=== PATIENT | female | born 1960 | race Caucasian/White ===

== ENCOUNTER 2022-09-09 12:38 | Emergency (ER) | payer BC, SELFPAY ==
[2022-09-09 12:44] VITALS: BP 131/72; PULSE 56; RESP 18; TEMP 36.8; O2SAT 100
--- NOTE | 2022-09-09 12:56 | ED.GENADUL_ITS ---
Discharge Plan Disposition Patient Disposition: Home Condition: Stable Discharge Details Clinical Impression: Transient visual loss of left eye, Hematuria ED Provider: Cristel Steinberg Home Meds and New Rx's Prescriptions: No Action No Known Home Meds Discharge Instructions Instructions: Hematuria (ED) Additional Instructions: As we discussed, your labs and imaging are reassuring. Not seeing you during the event, it is hard to say definitively what occurred. It is reassuring that an manager field service evaluated you and is not seeing any acute abnormalities. Again, imaging is reassuring. Please follow-up with primary care esthesia,. Please take 81 mg of aspirin daily. If you develop headache, vision change, fevers, headache, weakness, speech changes or other new/worsening symptoms please seek care urgently once again. Discharge Data Discharge Date/Time-TO BE ENTERED AT DEPARTURE: 09/09/22 17:04 Medical Decision Making Patient is a pleasant 62 year old female, accompanied by her , no past medical history and not on any medication, presenting with c/c of brief vision loss to left eye yesterday which has since resolved. States that around 1030 last night she was sitting with her eyes closed chatting with her partner when she opened her eyes and noted a change. From. To close each eye individually and she states that no light could come in through my left eye. She states this lasted about a minute and then resolve. Denies any eye pain. Has not had issues like this historically. No fevers or chills. Denies any headache. No temporal pain. No jaw claudication. Wears glasses normally. Was already assessed today by ophthalmology who dilated her pupils, did a retinal exam, visual acuity and could not find any acute abnormality or evidence of clot on their exam. They did advise coming here to evaluate for potential TIA. She reports that her vision is completely normal at this time Aside from some photophobia associated with her pupil dilation. She has no history of stroke. Father had a stroke in his 90s. Non-smoker, no alcohol intake, otherwise fairly healthy but does not receive routine follow-up with primary care. Visiting from [place]. On exam, patient appears nontoxic. She is hemodynamically stable. She is resting comfortably, Intact neuro exam. Her pupils are dilated but otherwise I do not note any abnormality. 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 She was seen by [facility] for exam, no abnormalities, but pupils remain dilated. She has no weakness, good balance, no other CN deficits. She does have hx of glaucoma but pressures were not high today. Without pain or continued issue, I find this unlikely to be cause. No previous issues with this, no hx of CVA. Dad had CVA in his 90s but no evidence currently. Complete unilateral suggests optic neuritis but lack of persistent symptoms makes this less likely. Will obtain CTA, labs. She is very active without symptoms during these times, I do not see evidence of ACS. No findings of DVT. CT Head W/O and W contrast: Ventricles and Extra axial spaces: Normal in size and morphology for the patient's age. Hemorrhage: None. Cerebral parenchyma: Normal. Midline shift: None. Brainstem/Cerebellum: Normal. Calvarium: Normal. Visualized Paranasal sinuses/Mastoids: Clear. Soft Tissues: Unremarkable. Enhancement: Normal. CTA Brain W: Internal Carotid Arteries: Petrous: Normal. Cavernous: Normal. Cerebral: Normal. Middle Cerebral Arteries: Right:? No aneurysm, occlusion or significant stenosis. Left:? No aneurysm, occlusion or significant stenosis. Anterior Cerebral Arteries: Right:? No aneurysm, occlusion or significant stenosis. Left:? No aneurysm, occlusion or significant stenosis. Posterior cerebral Arteries: Right:? No aneurysm, occlusion or significant stenosis. Left:? No aneurysm, occlusion or significant stenosis. Vertebral Arteries: Right:? No aneurysm, occlusion or significant stenosis. Left:? No aneurysm, occlusion or significant stenosis. Basilar Artery:? No aneurysm, occlusion or significant stenosis. CTA Neck W: Common Carotid: Right:? No dissection, occlusion or significant stenosis. Left:? No dissection, occlusion or significant stenosis. External Carotid: Right:? No dissection, occlusion or significant stenosis. Left:? No dissection, occlusion or significant stenosis. Internal Carotid: Right:? No dissection, occlusion or significant stenosis. Left:? No dissection, occlusion or significant stenosis. Vertebral Artery: Right:? No dissection, occlusion or significant stenosis. Left:? No dissection, occlusion or significant stenosis. Lung Apices: Normal. Bones: No acute abnormality.? 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 Mild degenerative disc changes at C5-6.? Soft Tissues: Normal. IMPRESSION: 1. Normal CTA examination of the [place]. 2. Unremarkable CT Head. 3. Normal CTA examination of the neck.? Discussed at length with patient and her and friend. At this time, no acute pathology noted. She had thorough eval with [facility]. Unclear if this may have been temporary occlusive disease of the optic artery or vein. The galindo lost are not consistent with TIA of the occipital lobe. Will send with [facility]. Discussed starting a pension administrator but given where she is from, she will complete this at home. Discussed admission for observation vs. outpatient workup and she would like to be home, has good supportive care. Jamison has been asymptomatic thorughout the rest of the evening yesterday as well as during her evaluation here today. Advised she begin baby ASA. Strict return precautions given. All of her questions and concerns were addressed, she is in agreement with this plan. HPI General Date/Time Provider Initiated Documentation: 09/09/22 12:54 . Limitations to Documentation: no limitations . Information obtained by: patient, family () and RN notes reviewed . History of Present Illness 62 year old F presents to the emergency department with the chief complaint of complete. loss of vision in left eye, now resolved, described as severe, with intensity rated at 1 (denies any pain during the incident). and is localized to the eyes. Patient reports no radiation. Patient started experiencing this day(s) and it has been now resolved (lasted less than 1 min). No relieving factors improve symptom(s), No exacerbating factors reported (had eyes closed prior to event) . Patient notes no other symptoms.. Patient did receive the following treatments prior to arrival, none Related Data Home Medications Medication Instructions Recorded Confirmed Unknown [No Known Home Meds] 09/09/22 09/09/22 Allergies Allergy/AdvReac Type Severity Reaction Status Date / Time No Known Allergies Allergy Unverified 09/09/22 13:00 General Stated Complaint: EyeProblem CANDIDA: 3 Review of Systems Constitutional Constitutional: Reports as per HPI, Denies chills, Denies fever(s), Denies frequent falls and Denies weakness Eyes Eyes: Reports as per HPI ENT Ears, Nose, Mouth, and Throat: Denies vertigo and Denies neck pain Cardiovascular Cardiovascular: Reports as per HPI, Denies chest pain, Denies lightheadedness, Denies radiating jaw, neck or arm pain, Denies dyspnea and Denies dyspnea on exertion Respiratory Respiratory: Reports as per HPI, Denies chest congestion, Denies cough, Denies dyspnea and Denies dyspnea on exertion Gastrointestinal Gastrointestinal: Reports as per HPI, Denies abdominal pain, Denies change in bowel habits, Denies nausea and Denies vomiting Musculoskeletal Musculoskeletal: Reports as per HPI, Denies back pain, Denies neck pain and Denies numbness Integumentary/Breasts Skin/Breast: Reports as per HPI and Denies rash Neurologic Neurologic: Reports as per HPI, Denies abnormal speech, Denies vertigo, Denies frequent falls, Denies localized weakness, Denies numbness, Denies sensory deficit and Denies weakness PFSH All Active Problems (Updated 09/09/22 @ 16:23 by DEVANTE Horner) Transient visual loss of left eye (Acute) Hematuria (Acute) Social History Smoking risk assessment performed?: No Drug use: Never Substance use type: does not use Housing: house Do you feel safe at home: Yes Do you feel safe in your relationship?: Yes Exam Const General: cooperative, healthy appearing, uncomfortable, no acute distress, well developed and well groomed Nutritional Appearance: average body habitus and well nourished Orientation: alert, awake and oriented x3 HENMT Head: normal to inspection, no palpable skull fracture, normocephalic and atraumatic Ears: hearing grossly normal bilaterally, external ears normal and TM's normal bilaterally General nose exam: external nose normal Mouth: oral mucosae normal and moist mucous membranes Throat: posterior oropharynx normal Eyes General: appearance normal, both eyes and all related structures (pupils dilated, no reflex) Alignment and Position: alignment normal Periorbital: periorbital findings normal Eyelids: eyelids normal Sclera: sclerae normal Cornea: corneas normal EOM: EOM intact bilaterally Neck Neck: normal visual inspection, full ROM, no lymphadenopathy and no meningeal signs Resp Effort & Inspection: normal respiratory effort, able to speak in complete sentences and no respiratory distress Auscultation: clear to auscultation bilaterally, no rales, no rhonchi and no wheezes Cardio Rate: regular rate Rhythm: regular rhythm Heart Sounds: S1 normal and S2 normal Back/Spine/Pelvis Cervical Spine: normal cervical lordosis and cervical ROM normal Skin General skin exam: no rashes or lesions noted Neuro General: patient alert, patient awake and patient oriented x3 Cranial Nerves: CN's II-XI intact bilaterally (had eyes dilated limiting exam) Cognition: normal cognition Speech: speech normal Gait: normal gait Motor: muscle tone normal throughout, strength 5/5 throughout, no pronator drift, no movement abnormalities noted and no fasciculations Sensory Exam: no sensory deficits noted Coordination: [id number] test normal and [id number] test normal Extrem General: normal to inspection, capillary refill normal, no pedal edema and no calf tenderness Course Vital Signs Vital signs: Vital Signs Temperature 36.8 C 09/09/22 12:44 Pulse 56 L 09/09/22 12:44 Respiratory Rate 18 09/09/22 12:44 Blood Pressure 131/72 09/09/22 12:44 Pulse Oximetry 100 09/09/22 12:44 Temperature 36.8 C 09/09/22 12:44 Temperature Source Oral 09/09/22 12:44 Pulse 56 L 09/09/22 12:44 Respiratory Rate 18 09/09/22 12:44 Respiratory Effort Normal, Non-Labored 09/09/22 12:47 Blood Pressure 131/72 09/09/22 12:44 Blood Pressure Position Sitting 09/09/22 12:44 Pulse Oximetry 100 09/09/22 12:44 Oxygen Delivery Method Room Air 09/09/22 12:44 Oxygen Flow Rate 0 09/09/22 12:44
--- NOTE | 2022-09-09 13:00 | RT.EKG_ITS ---
APPROVED REPORT Exam: Resting ECG Reason for Exam: vision loss, question TIA Patient Location: E HR:53 bpm ECG Measurements Heart Rate 53 AXIS SD 170 P 65 QRSd 96 QRS 53 QT 414 T 48 QTc 387 Conclusion Sinus bradycardia...rate< 60 Physician: no stemi
--- NOTE | 2022-09-09 13:00 | DI.CT_ITS ---
Exam(s) CT BRAIN NECK CTA EXAM: CT BRAIN NECK CTA CLINICAL HISTORY: left sided vision loss yesteday, now resolved. TECHNIQUE: Imaging Protocol: Axial CT angiography was performed with multi-slice acquisition and mu lti-planar and 3D reconstructions. CONTRAST MATERIAL: Intravenous: Omnipaque 350 Contrast volume:structured data in ml COMPARISON: No exams were available for comparison FINDINGS: CT Head W/O and W contrast: Ventricles and Extra axial spaces: Normal in size and morphology for the patient's age. Hemorrhage: None. Cerebral parenchyma: Normal. Midline shift: None. Brainstem/Cerebellum: Normal. Calvarium: Normal. Visualized Paranasal sinuses/Mastoids: Clear. Soft Tissues: Unremarkable. Enhancement: Normal. CTA Brain W: Internal Carotid Arteries: Petrous: Normal. Cavernous: Normal. Cerebral: Normal. Middle Cerebral Arteries: Right: No aneurysm, occlusion or significant stenosis. Left: No aneurysm, occlusion or significant stenosis. Anterior Cerebral Arteries: Right: No aneurysm, occlusion or significant stenosis. Left: No aneurysm, occlusion or significant stenosis. Posterior cerebral Arteries: Right: No aneurysm, occlusion or significant stenosis. Left: No aneurysm, occlusion or significant stenosis. Vertebral Arteries: Right: No aneurysm, occlusion or significant stenosis. Left: No aneurysm, occlusion or significant stenosis. Basilar Artery: No aneurysm, occlusion or significant stenosis. CTA Neck W: Common Carotid: Right: No dissection, occlusion or significant stenosis. Left: No dissection, occlusion or significant stenosis. External Carotid: Right: No dissection, occlusion or significant stenosis. Left: No dissection, occlusion or significant stenosis. Internal Carotid: Right: No dissection, occlusion or significant stenosis. Left: No dissection, occlusion or significant stenosis. Vertebral Artery: Right: No dissection, occlusion or significant stenosis. Left: No dissection, occlusion or significant stenosis. Lung Apices: Normal. Bones: No acute abnormality. 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 Mild degenerative disc changes a t C5-6. Soft Tissues: Normal. IMPRESSION: 1. Normal CTA examination of the [place]. 2. Unremarkable CT Head. 3. Normal CTA examination of the neck. RADIATION DOSE DELIVERED: 2,017mGy.cm Total DLP DATA REPOSITORY: All CT scans at this facility are submitted to the National Radiology Data Registry (NRDR) Dose Index Registry (DIR) with the [employer] ([employer]). RADIATION OPTIMIZATION: All CT scans at this facility use at least one of these dose optimization te chniques: automated exposure control; mA and/or kV adjustment per patient size (includes targeted exa ms where dose is matched to clinical indication); or iterative reconstruction.
--- NOTE | 2022-09-09 13:26 | DI.RAD_ITS ---
Exam(s) XR CHEST 2V PA LATERAL EXAM: XR CHEST 2V PA LATERAL CLINICAL HISTORY: vision loss yesterday, now resolved TECHNIQUE: 2D digital imaging was performed. COMPARISON: No exams were available for comparison FINDINGS: HEART: Normal size. Aorta: Not dilated. PULMONARY VASCULATURE: Normal. LUNGS: Clear. PLEURAL SPACE: No pleural effusion or pneumothorax. BONE:Unremarkable for age. IMPRESSION: No acute abnormality. DATA REPOSITORY: RADIATION DOSE DELIVERED:
[2022-09-09 13:49] LABS: Bilirubin Negative (Negative); Blood Small (Negative); Clarity Clear (Clear); Glucose Negative (Negative); Ketones Negative (Negative); Leukocyte Esterase Negative (Negative); Nitrite Negative (Negative); Specific Gravity <= 1.005 (1.005-1.025); Urobilinogen 0.2 mg/dL (Up to 0.2); pH 5.5 (5-8)
[2022-09-09] MEDS: Normal Saline 1,000 ML 500 ML IV (13:57)
[2022-09-09 13:59] LABS: Abs Immature Grans 0.01 10^3/uL (0.0-0.06); Absolute Basophil Count 0.03 10^3/uL (0.0-0.2); Absolute Eosinophil Count 0.05 10^3/uL (0.0-0.7); Absolute Lymphocyte Count 1.67 10^3/uL (1.2-3.4); Absolute Neutrophil Count 3.04 10^3/uL (1.2-6.7); Basophils % 0.6; HCT 45.5 % (36.0-46.0); HGB 14.9 g/dL (11.2-15.7); Immature Grans % 0.2; Lymphocytes % 32.1; MCH 29.6 pg (27.0-33.0); MCHC 32.7 % (32.0-36.0); MCV 91 fL (80-95); MPV 10.3 fL (8.0-11.0); Monocytes % 7.7; Neutrophils % 58.4; Platelet Count 337 10^3/uL (130-400); RBC 5.03 10^6/uL (3.93-5.22); RDW 12.4 % (11.7-14.6); RDW-SD 41.3 fL
[2022-09-09 13:59] LABS: Bacteria Negative HPF (Negative); C & S Indicated? No; Casts Negative LPF (Negative); Crystals Negative HPF (Negative); Epithelial Cells Negative HPF (Negative); Mucus Negative (Negative); RBC 0-2 HPF (0-2); WBC 0-2 HPF (0-5)
[2022-09-09 14:22] LABS: ALT 33 U/L (14-59); AST 24 U/L (15-37); Albumin 4.4 g/dL (3.4-5.0); Alkaline Phosphatase 98 U/L (46-116); Anion Gap 8.4 mmol/L (3-11); BUN 15 mg/dL (7-18); Bilirubin, Total 0.5 mg/dL (0.2-1.0); CO2 28.6 mmol/L (21.0-32.0); CREATININE 0.9 mg/dL (0.55-1.02); Calcium 9.5 mg/dL (8.5-10.1); Chloride 105 mmol/L (98-107); Estimated GFR 72.28 (mL/min/1.73m2); Glucose 100 mg/dL (74-106); Magnesium 2.1 mg/dL (1.8-2.4); Potassium 4.1 mmol/L (3.5-5.1); Sodium 142 mmol/L (136-145); Total Protein 8.5 g/dL (6.4-8.2); Troponin I < 50 ng/L (<or=60)
[2022-09-09] MEDS: Omnipaque 350 MG/ML 100 ML BTL IJ (15:21)
[2022-09-09] MEDS: Normal Saline - Diluent 50 ML VIAL IJ (15:24)
[2022-09-09 16:31] VITALS: BP 149/68; PULSE 52; RESP 20; O2SAT 99
== END 2022-09-09 17:04 | disposition home or self-care (01) ==
PROVIDERS: Emergency Provider Physician Assistant
DX: H53.9 Unspecified visual disturbance (principal); R31.9 Hematuria, unspecified; R00.1 Bradycardia, unspecified; H40.9 Unspecified glaucoma
CPT/HCPCS: 36415; 70496; 70498; 80053; 93005; 96360; 96361; 99285; 71046; 81003; 81015; 83735; 84484; 85025; 93010; 99283; J3490